=== PATIENT | male | born 1975 | race Caucasian/White ===

== ENCOUNTER 2021-06-03 12:42 | Emergency (ER) | payer MEDICAID, SELFPAY ==
[2021-06-03 12:45] VITALS: BP 151/113; PULSE 108; RESP 22; TEMP 35.3; O2SAT 100; BMI 32.8
--- NOTE | 2021-06-03 13:59 | ED.VIS.LOWEX ---
HPI History of Present Illness Chief Complaint: Lower Extremity Injury Informant: patient Narrative Narrative: Patient complains of cold feet. He states he was here staying with his mother. They had a disagreement. She wanted him to stop drinking. He stated he did stop drinking if she stop smoking. They argued. He left the house and was outside last night. He states his feet are cold. They hurt a little bit. They are not numb. He felt fine when he went out. He evidently does have in place in [place] that he can go to that is both work but he also has an option of having a place to sleep. He admits he has not eaten anything overnight. He is hungry. He has a history of cirrhosis. He states he always gets nauseated if he eats too much but if he does not eat he gets nauseated too. At this time he is not nauseated. He has no fevers or chills. No cold fingers nose or ears. He feels better now that he is not outside. He denies history of known prior frostbite or injury to his feet from cold. No acute trauma. [facility] Medical History Alcohol abuse Alcoholic cirrhosis of liver Hypertension Home Medications NK 06/03/21 [History Last Taken Unknown] Social History Smoking Status: Current every day smoker tobacco type: cigarettes ROS ROS ED Constitutional Constitutional ED: Denies fever(s) Eyes Eyes: Denies blurry vision ENT ENT ED: Denies rhinorrhea Cardiovascular Cardiovascular: Denies chest pain or palpitations Respiratory/Chest Respiratory/Chest: Denies cough or dyspnea Gastrointestinal Gastrointestinal: Denies abdominal pain, diarrhea, nausea or vomiting Musculoskeletal Musculoskeletal: Reports other Details: See history of present illness. Integumentary Denies rash Neurologic Neurologic: Denies headache(s) Endocrine Endocrinology: Denies polydipsia or polyuria Hematologic/Lymphatic Hematologic/Lymphatic: Denies easy bleeding or easy bruising Allergic/Immunologic Allergic/Immunologic ED: Denies mouth swelling or urticaria EXAM Physical Exam Const Vital Signs: 06/03/21 12:45 06/03/21 14:58 Temperature 95.5 F L Temperature Source Temporal Pulse Rate 108 H Respiratory Rate 22 H 24 H Blood Pressure 151/113 H Blood Pressure Mean 125 Pulse Ox 100 Oxygen Delivery Method Room Air Positive well nourished, well developed and obese General Appearance ED: well developed and NAD Nutritional Appearance: obese HEENT normocephalic and atraumatic Eyes Eyes Narrative: No icterus noted. Neck full ROM and supple Chest Wall inspection of chest normal and palpation of chest normal Resp normal respiratory effort, No no retractions and clear to auscultation bilaterally Auscultation: Negative for rales, rhonchi or wheezes Cardio regular rate and regular rhythm GI non-tender and non-distended GI Narrative: Abdomen is obese. However there is no notable tenderness. Palpation: soft Extremity Extremity Narrative: Patient's lower extremities are cool mostly in the distal half of the foot and toes. There is no blister formation. No swelling. No erythema. On the right foot between the fifth and fourth toe there is a small area that is black and blue. But is not blistered. There is no blistering on the bottom or tips. There is no sign of infection. This is area is a bit colder. I am concerned that this might be some mild frostbite in a local area. Neuro oriented x3 Sensorium / Orientation: alert Psych mental status grossly normal Skin Skin Narrative: See above. MDM MDM MDM Narrative Medical decision making narrative: Patient's recheck. He ate food. He states he gets a little bit of acid reflux with food but otherwise tasted good. No abdominal pain. His feet are doing better. He states he can stay with an uncle. I talk with him that there is no specific treatment is needed. He really does not have a change in that right foot. I am not seeing development of blister at this time. Although this might occur. However, he needs to keep this warm. Plan will be to get him discharged to stay with his uncle. If he develops further pain, swelling, swelling or redness of the leg or other symptoms he may need to return. He was still encouraged to abstain from drinking if he can. He is not interested in detox at this time. Discharge Plan Triage Chief Complaint: Lower Extremity Injury ED Provider: Riki Pisano Dx/Rx/DC Orders Clinical Impression: Frostbite of toe of right foot Instructions: ED Frostbite Prescriptions: No Action NK RF: 0 Primary Care Provider: Care Physician,No Primary Referrals: Farzaneh Cowart MD [STAFF PHYSICIAN] - 3-5 Days if not improving Care Physician,No Primary [Primary Care Provider] - Disposition Disposition: Home, Self Care
[2021-06-03 14:58] VITALS: RESP 24
[2021-06-03 15:37] VITALS: BP 149/107; PULSE 88; TEMP 36.1
[2021-06-03] MEDS: Mag Hydrox/Al Hydrox/Simeth 30 ML UDC PO (15:37)
== END 2021-06-03 15:39 | disposition home or self-care (01) ==
PROVIDERS: Emergency Provider Emergency Medicine; Visit Provider Emergency Medicine
DX: T33.831A Superficial frostbite of right toe(s), initial encounter (principal); K70.30 Alcoholic cirrhosis of liver without ascites; F17.210 Nicotine dependence, cigarettes, uncomplicated; F10.10 Alcohol abuse, uncomplicated; W93.8XXA Exposure to other excessive cold of man-made origin, initial encounter; Y93.9 Activity, unspecified; Y92.9 Unspecified place or not applicable; E66.9 Obesity, unspecified; Z68.32 Body mass index [BMI] 32.0-32.9, adult
CPT/HCPCS: 99284

== ENCOUNTER 2021-12-11 09:24 | Emergency (ER) | payer MEDICAID, SELFPAY ==
[2021-12-11 09:25] VITALS: BP 165/110; PULSE 126; RESP 16; TEMP 36.7; O2SAT 98; BMI 31.7
--- NOTE | 2021-12-11 09:45 | EX.ED.SAOD ---
HPI History of Present Illness Chief Complaint: Substance Abuse Narrative Narrative: This is a 45-year-old male with reported history of PTSD, borderline personality disorder, bipolar disorder. He states that he does not take any medication for these things. He states that he has a history of methamphetamine use and states he last used a few days ago. Patient also states that he is an alcoholic and drinks regularly. He states he drank this morning. He feels like he was withdrawing from something. He complains of being very sweaty. He is not having chest pain or shortness of breath. He does state that he is hallucinating and seeing stuff but he will not elaborate. Patient states that some days he wishes that he would not wake up. He states that he has had some suicidal thoughts but does not have a actual plan. He will elaborate further and states this is personal. [facility] Medical History Alcohol abuse Alcoholic cirrhosis of liver Hypertension Home Medications NK 06/03/21 [History Last Taken Unknown] Allergy/AdvReac Type Severity Reaction Status Date / Time disulfiram [From Antabuse] Allergy Hives Verified 12/11/21 09:29 Social History Smoking Status: Current every day smoker tobacco type: cigarettes ROS ROS ED Constitutional Constitutional ED: Reports sweats; Denies chills Eyes Eyes: Denies change in vision or diplopia ENT ENT ED: Denies rhinorrhea or sore throat Cardiovascular Cardiovascular: Reports palpitations and racing heartbeat; Denies chest pain Respiratory/Chest Respiratory/Chest: Denies cough or dyspnea Gastrointestinal Gastrointestinal: Denies abdominal pain, nausea or vomiting Genitourinary Genitourinary ED: Denies dysuria Musculoskeletal Musculoskeletal: Denies back pain or myalgias Integumentary Denies abscess Neurologic Neurologic: Reports headache(s); Denies paresthesias or weakness Psychiatric Psychiatric: Reports anxiety and suicidal thoughts EXAM Physical Exam Const Vital Signs: 12/11/21 09:25 12/11/21 12:54 Temperature 98.0 F Temperature Source Temporal Pulse Rate 126 H 871 H Respiratory Rate 16 6 L Blood Pressure 165/110 H 139/89 H Blood Pressure Mean 128 105 Pulse Ox 98 Oxygen Delivery Method Room Air Positive obese and unkempt Constitutional Narrative: Diaphoretic General Appearance ED: unkempt; Negative for pallor Nutritional Appearance: obese HEENT Reports moist mucous membranes atraumatic Eyes PERRL and EOMs intact bilaterally General Eye ED: Negative for pale conjunctiva or scleral icterus Chest Wall inspection of chest normal and palpation of chest normal Resp normal respiratory effort Cardio regular rhythm Rate: tachycardic Neuro oriented x3 and CN's II-XII intact bilaterally Sensorium / Orientation: alert Psych Appearance: unkempt and disheveled Attitude: paranoid and agitated Activity / Motor Behavior: fidgetting, hyperactive and disorganized Speech: rapid Thought Process: racing thoughts Thought Content: suicidality and No homicidality Attention / Concentration: attention grossly impaired and concentration grossly impaired Memory / Cognition: memory grossly intact Insight: limited Judgement: limited Skin General Skin Exam: Negative for jaundice or pallor MDM MDM MDM Narrative Medical decision making narrative: Patient presenting with stated hallucinations and stating he has psychiatric problems and is off his medications. His heart rates initially tachycardic at 126. He states he does have some thoughts of suicide but states this is only that he does not want to wake up in the morning. He does not have any plans. I did obtain blood work and the patient CBC shows a leukocytosis. Hemoglobin is hemoconcentrated 18.1. Is no comparison. Creatinine is 1.69 again with no comparison. Electrolytes are normal. Patient's total bilirubin is 1.3, AST 72, ALT 102, alkaline phosphatase 143. This would be consistent with patient's history of cirrhosis. He is not having abdominal pain. EtOH is negative. Urine drug screen positive for methamphetamine, MDMA, cannabinoids. Urinalysis negative for infection. High-sensitivity troponin is 11. CPK only mildly elevated at 652 and he was given a liter of IV fluids. He was discovered that the patient had come to the ER. Because he has a warrant out for his arrest. Apparently he was waiting for the police to be leave. After this he wanted to be discharged home. I went to evaluate the patient and he had eloped. I do not think that he needs to be placed for suicidal thoughts as he is only thinking about not waking up. He does not have any plan. In regards to his renal function is on sure what his creatinine normally is. I would not think he need to be hospitalized for this either. His LFTs are consistent with somebody with cirrhosis which he admits to. Impression: 1. Hallucinations 2. Methamphetamine abuse 3. MDMA abuse 4. Renal dysfunction 5. History of cirrhosis 6. Suicidal thoughts without Lab Data Attestation: I reviewed the patient's lab results. Labs: Laboratory Results - last 24 hr 12/11/21 12/11/21 12/11/21 09:45 09:45 09:45 WBC 10.6 RBC 5.78 Hgb 18.1 H* Hct 52.4 MCV 90.7 MCH 31.3 MCHC 34.5 RDW Std Deviation 44.6 H RDW Coeff of Zbigniew 13.2 Plt Count 292 MPV 9.1 Immature Gran % (Auto) 0.200 Neut % (Auto) 60.7 Lymph % (Auto) 26.4 Rains % (Auto) 10.3 H Eos % (Auto) 1.5 Baso % (Auto) 0.9 Absolute Neuts (auto) 6.4 Absolute Lymphs (auto) 2.78 Nucleated RBC % 0 [address] Review May foll Sodium 139 Potassium 3.5 Chloride 105 Carbon Dioxide 22.0 Anion Gap 12 BUN 23 H Creatinine 1.69 H Estim Creat Clear Calc 64.18 Est GFR (MDRD) Af Amer 57 L Est GFR (MDRD) Non-Af 47 L BUN/Creatinine Ratio 13.6 Glucose 143 H Calcium 11.2 H Magnesium Total Bilirubin 1.30 H AST 72 H ALT 102 H Alkaline Phosphatase 143 H Total Creatine Kinase Troponin I High Sens Total Protein 8.6 H Albumin 5.0 Globulin 3.6 Albumin/Globulin Ratio 1.4 Urine Color Urine Clarity Urine pH Ur Specific [place] Urine Protein Urine Glucose (UA) Urine Ketones Urine Occult Blood Urine Nitrite Urine Bilirubin Urine Urobilinogen Ur Leukocyte Esterase Urine RBC Urine WBC Ur Squamous Epith Cells Urine Bacteria Urine Mucus Urine Opiates Screen Urine Methadone Screen Ur Barbiturates Screen Ur Phencyclidine Scrn Ur Amphetamines Screen MDMA (Ecstasy) Screen U Benzodiazepines Scrn Urine Cocaine Screen U Cannabinoids Screen Ur Drug Screen Comment Ethyl Alcohol < 3.0 12/11/21 12/11/21 12/11/21 10:01 12:50 12:50 WBC RBC Hgb Hct MCV MCH MCHC RDW Std Deviation RDW Coeff of Zbigniew Plt Count MPV Immature Gran % (Auto) Neut % (Auto) Lymph % (Auto) Rains % (Auto) Eos % (Auto) Baso % (Auto) Absolute Neuts (auto) Absolute Lymphs (auto) Nucleated RBC % Diff Path Review Sodium Potassium Chloride Carbon Dioxide Anion Gap BUN Creatinine Estim Creat Clear Calc Est GFR (MDRD) Af Amer Est GFR (MDRD) Non-Af BUN/Creatinine Ratio Glucose Calcium Magnesium 2.0 Total Bilirubin AST ALT Alkaline Phosphatase Total Creatine Kinase 652 H Troponin I High Sens 11 Total Protein Albumin Globulin Albumin/Globulin Ratio Urine Color Luh Urine Clarity Sl. Cloudy Urine pH 5.0 Ur Specific [place] 1.025 Urine Protein 100 H Urine Glucose (UA) Normal Urine Ketones 15 H Urine Occult Blood 10 H Urine Nitrite Negative Urine Bilirubin 1 H Urine Urobilinogen 1 H Ur Leukocyte Esterase 25 H Urine RBC 0-5 SEEN Urine WBC 0-5 SEEN Ur Squamous Epith Cells 0-5 SEEN Urine Bacteria 0 SEEN Urine Mucus 0 SEEN Urine Opiates Screen NEGATIVE Urine Methadone Screen NEGATIVE Ur Barbiturates Screen NEGATIVE Ur Phencyclidine Scrn NEGATIVE Ur Amphetamines Screen POSITIVE H MDMA (Ecstasy) Screen POSITIVE H U Benzodiazepines Scrn NEGATIVE Urine Cocaine Screen NEGATIVE U Cannabinoids Screen POSITIVE H Ur Drug Screen Comment Ethyl Alcohol Discharge Plan Triage Chief Complaint: Substance Abuse ED Provider: Jonathan Kaur Dx/Rx/DC Orders Prescriptions: No Action NK Primary Care Provider: Care Physician,No Primary Referrals: Care Physician,No Primary [Primary Care Provider] - Disposition Disposition: Home, Self Care Discharge Date/Time: 12/11/21 14:05
[2021-12-11] MEDS: LORazepam 2 MG/ML Syringe IV (09:51)
[2021-12-11] MEDS: 0.9% Normal Saline 1,000 ML 999 ML IV (09:51)
[2021-12-11 10:05] LABS: Absolute Lymphocyte Count 2.78 X10^3/uL (0.83-4.51); Absolute Neutrophil Count 6.4 X10^3/uL (2.0-7.7); Basophil% 0.9 % (0-1); Eosinophil# 0.16 X10^3/uL; Eosinophils% 1.5 % (0-5); Hematocrit 52.4 % (40-54); Hemoglobin 18.1 g/dL (13.0-16.5); Lymphocyte # 2.78 X10^3/ul (0.83-4.51); Lymphocyte % 26.4 % (19-41); Mean Corp Hgb Conc 34.5 g/dL (32-36); Mean Corpuscular Hgb 31.3 pg (27.0-32.0); Mean Corpuscular Volume 90.7 fL (80-94); Mean Platelet Vol. 9.1 fl (6.2-12.0); Monocyte# 1.09 X10^3/uL; Monocyte% 10.3 % (0-10); NRBC Flagged by Analyzer 0 % (0-5); Neutrophil % 60.7 % (47-70); Platelet Count 292 K/mm3 (150-450); RBC Distribution Width CV 13.2 % (11.6-14.6); RBC Distribution Width SD 44.6 fl (35.1-43.9); Red Blood Count 5.78 M/mm3 (4.6-6.2); White Blood Count 10.6 K/mm3 (4.4-11.0)
[2021-12-11 10:19] LABS: ALB/GLOB Ratio 1.4 RATIO (0.9-2.4); AST(SGOT) 72 U/L (15-37); Alanine Aminotransfer ALT/SGPT 102 U/L (16-61); Alkaline Phosphatase 143 U/L (45-117); Anion Gap 12 (5-15); BUN 23 mg/dL (7-18); BUN/Creat Ratio 13.6 RATIO (10-20); Calcium,Total 11.2 mg/dL (8.5-10.1); Chloride 105 mmol/L (98-107); Creatinine, Serum 1.69 mg/dL (0.70-1.30); EST Glomerular Filtration Rate 47 mL/min (>60); Est Glom Filt Rate - Afr Amer 57 mL/min (>60); Estimated Creatinine Clearance 64.18 ml/min; Globulin 3.6 g/dL (2.2-4.2); Glucose 143 mg/dL (74-106); Potassium 3.5 mmol/L (3.5-5.1); Protein, Total 8.6 g/dL (6.4-8.2); Sodium Level 139 mmol/L (136-145)
[2021-12-11 10:32] LABS: Alcohol, Blood (Medical)-Serum < 3.0 mg/dL
[2021-12-11 10:38] LABS: CPK Total, Creatine Kinase 652 U/L (39-308); Troponin-I HS 11 pg/mL (3.0-78.0)
[2021-12-11 12:54] VITALS: BP 139/89; PULSE 871; RESP 6
[2021-12-11 12:55] LABS: Bacteria 0 SEEN /hpf (None Seen); Mucous, Urine 0 SEEN /hpf (<or=2+)
[2021-12-11 12:57] LABS: Color, Urine Amber (Yellow); Glucose, Dipstick Normal (Normal); Ketone-Dipstick 15 mg/dl (Negative); Leukocyte Esterase-Dipstick 25 /ul (Negative); Nitrite-Dipstick Negative (Negative); Occult Blood-Urine 10 /ul (Negative); Protein-Dipstick 100 mg/dl (Negative); Specific Gravity, Urine 1.025 (1.002-1.030); Urine Bilirubin Dipstick 1 mg/dL (Negative); Urine Clarity Sl. Cloudy (Clear); Urine Urobilinogen 1 mg/dl (Normal)
[2021-12-11 13:02] LABS: Red Blood Cells-Urine 0-5 SEEN /hpf (0-5); Squamous Epithelial Cells - UA 0-5 SEEN /hpf (0-5); White Blood Cells 0-5 SEEN /hpf (0-5)
--- NOTE | 2021-12-11 13:17 | NURSING ---
CALLED [facility] TO HAVE PT EVALUATED, CHART FAXED AT THIS TIME
[2021-12-11 13:23] LABS: Amphetamine Urine VISTA POSITIVE (<1000 ng/mL); Barbiturate Urine VISTA NEGATIVE (< 200 ng/mL); Benzodiazepine Urine VISTA NEGATIVE (< 200 ng/mL); Cocaine Urine VISTA NEGATIVE (< 300 ng/mL); Ecstacy Urine VISTA POSITIVE (< 500 ng/mL); Methadone Urine VISTA NEGATIVE (< 300 ng/mL); PCP Urine VISTA NEGATIVE (< 25 ng/mL); THC Urine VISTA POSITIVE (< 50 ng/mL); Vista UDS pH Range 5
--- NOTE | 2021-12-11 14:04 | ED.RN ---
PT WANTS TO LEAVE, NOT PINK SLIPPED AT THIS TIME PER DR WASSERMAN. CALLED [place] [facility] BECAUSE PT HAS WARRANTS.
[2021-12-12 11:49] LABS: Pathologist Review Reviewed
== END 2021-12-11 14:05 | disposition home or self-care (01) ==
PROVIDERS: Emergency Provider Student in an Organized Health Care Education/Training Program; Visit Provider Student in an Organized Health Care Education/Training Program
DX: F15.10 Other stimulant abuse, uncomplicated (principal); F60.3 Borderline personality disorder; F31.9 Bipolar disorder, unspecified; R45.851 Suicidal ideations; F17.210 Nicotine dependence, cigarettes, uncomplicated; I10 Essential (primary) hypertension; N28.9 Disorder of kidney and ureter, unspecified; E66.9 Obesity, unspecified; F43.10 Post-traumatic stress disorder, unspecified; Z91.14 Patient's other noncompliance with medication regimen; Z79.899 Other long term (current) drug therapy
CPT/HCPCS: 80053; 80307; 81001; 82077; 82550; 83735; 84484; 85025; 93005; 96361; 96374; 99284